=== PATIENT | female | born 1980 | race Asian ===

== ENCOUNTER 2021-08-26 13:39 | Outpatient (CLI) | payer OTHER | END 2021-08-26 13:40 | disposition home or self-care (01) | LOC: CSHWCC 13:39 | PROVIDERS: ATTEND Nurse Practitioner Family | DX: L97.529 Non-pressure chronic ulcer of other part of left foot with unspecified severity (principal) | CPT/HCPCS: 99212; G0463 ==

== ENCOUNTER 2021-09-16 12:49 | Outpatient (CLI) | payer OTHER | END 2021-09-16 12:50 | disposition home or self-care (01) | LOC: CSHWCC 12:49 | PROVIDERS: ATTEND Nurse Practitioner Family | DX: L97.529 Non-pressure chronic ulcer of other part of left foot with unspecified severity (principal) | CPT/HCPCS: 99212; G0463 ==

== ENCOUNTER 2021-10-28 13:07 | Outpatient (CLI) | payer OTHER | END 2021-10-28 13:08 | disposition home or self-care (01) | LOC: CSHWCC 13:07 | PROVIDERS: ATTEND Nurse Practitioner Family | DX: L97.529 Non-pressure chronic ulcer of other part of left foot with unspecified severity (principal) | CPT/HCPCS: 99213; G0463 ==

== ENCOUNTER 2023-06-30 14:09 | Outpatient (CLI) | payer OTHER | END 2023-06-30 14:10 | disposition home or self-care (01) | LOC: CSHCP 14:09 | PROVIDERS: ATTEND Internal Medicine | DX: M34.9 Systemic sclerosis, unspecified (principal); Z87.09 Personal history of other diseases of the respiratory system; J98.4 Other disorders of lung; R94.2 Abnormal results of pulmonary function studies | CPT/HCPCS: 94060; 94726; 94729; 94760 ==